=== PATIENT | female | born 1990 | race Caucasian/White ===

== ENCOUNTER 2016-11-16 09:46 | Outpatient (CLI) | payer OTHER ==
[2016-12-01] MEDS ORDERED: PRENATAL VIT1 TAB PO (12:59)
[2016-12-01] MEDS ORDERED: FERROUS GLUCON324 M2 PO (13:00)
[2016-12-01] MEDS ORDERED: COLACE-DPS100 MG PO (13:00)
[2016-12-01] MEDS ORDERED: MOTRIN-DPS800 MG PO (13:00)
[2016-12-01] MEDS ORDERED: NIPPLECREAM TP (13:00)
== END 2016-11-16 12:05 | disposition home or self-care (01) ==
LOC: 2LDRP 09:46 → BC 09:46
DX: O47.1 False labor at or after 37 completed weeks of gestation (principal); Z3A.37 37 weeks gestation of pregnancy

== ENCOUNTER 2016-11-29 06:40 | Inpatient (IN) | payer OTHER ==
[~2016-11-29] VITALS: Ht 175.3 cm; Wt 104.8 kg
--- NOTE | ~2016-11-29 | FD ---
ADMIT: 11/29/2016 RM/LOC: 229 [facility] MR#: [id number] [address] [facility] [address] [place], [place] [address] [address] [place] [id number] Final Diagnosis SEX: F AGE: 26 : 1990 ADMISSION DATE: 11/29/2016 DISCHARGE DATE: 11/30/2016 FINAL DIAGNOSES: 1. A 26-year-old 3, para 3-0-0-3 status post spontaneous vaginal delivery at 39 weeks 3 days. 2. History of HGSIL (high grade squamous intraepithelial lesion). 3. hemorrhage - 1700 mL. Status post Methergine series and Cytotec \T\ Pitocin. PROCEDURE: 1. Spontaneous vaginal delivery. 2. Epidural catheter placement and removal. Dori Larsen MD Resident / Lisa Burgos MD / arlette JOB #: [id number] CC: Lisa Burgos MD, Attending Physician Lisa Burgos MD, Family Physician
[2016-12-01] MEDS ORDERED: PRENATAL VIT1 TAB PO (12:59)
[2016-12-01] MEDS ORDERED: NIPPLECREAM TP (13:00)
[2016-12-01] MEDS ORDERED: MOTRIN-DPS800 MG PO (13:00)
[2016-12-01] MEDS ORDERED: FERROUS GLUCON324 M2 PO (13:00)
[2016-12-01] MEDS ORDERED: COLACE-DPS100 MG PO (13:00)
--- NOTE | 2017-01-03 09:18 | HP ---
ADMIT: 11/29/2016 RM/LOC: 229 [facility] MR#: [id number] 26[address] [facility] [address] [place] [id number] [address] [place] [id number] History and Physical SEX: F AGE: 26 : 1990 DATE OF SERVICE: HISTORY OF PRESENT ILLNESS: The patient is a 26-year-old G3, P 2-0-0-2, with an intrauterine at 39 weeks and 3 days via LMP and confirmed with first trimester ultrasound, who presents to the [facility] for induction of labor. The patient denies regular contractions, leaking of fluid, or vaginal bleeding at the time of presentation. She reports normal movement. has been complicated by history of high grade squamous intraepithelial lesion of the cervix, and uterine size greater than dates on office measurements with normal growth scan. PAST MEDICAL HISTORY: History of high grade squamous intraepithelial lesion. Denies a history of hypertension or asthma. SOCIAL HISTORY: The patient is to [place]. She lives with her and two children. Denies alcohol use, recreational drug use, or tobacco use. 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 FAMILY HISTORY: She has a family history significant for Parkinson disease as well as a CVA in her paternal grandfather. Her mother has hypertension. MEDICATIONS: vitamin. ALLERGIES: PENICILLIN, RASH. REVIEW OF SYSTEMS: The patient denies headache, changes of vision, chest pain, or shortness of breath. Denies nausea, vomiting, diarrhea, constipation. She overall feels well today. PHYSICAL EXAMINATION: VITAL SIGNS: Blood pressure 118/80, pulse 89, temperature 97.1, respiration rate 18, and saturation is greater than 95%. GENERAL: The patient is alert and oriented. She answers questions appropriately. She appears her stated age. No acute distress. HEART: Regular rate and rhythm. LUNGS: Clear to auscultation bilaterally. ABDOMEN: Gravid, nontender to palpation. Estimated weight is 3800 g. EXTREMITIES: Distal pulses are 2+ in bilateral lower extremities. 1+ edema in bilateral lower extremities. Homans sign negative bilaterally. heart tones, baseline, appears to be 130 with moderate variability, positive accelerations, no decelerations. On tocometer, the patient is not soraya at the time of presentation. Sterile vaginal exam per nurse is 5, 50, and -1. ASSESSMENT AND PLAN: This is a 26-year-old G3, P 2-0-0-2, with intrauterine at 39 weeks and 3 days via first trimester ultrasound, who presented ADMIT: 11/29/2016 RM/LOC: 229 [facility] MR#: [id number] [address] [phone] [address] [place] [address] History and Physical SEX: F AGE: 26 : 1990 to the [facility] for scheduled induction of labor. 1. Admit to [facility] for induction of labor. Pitocin per protocol. Verbal and written consents obtained for a vaginal delivery, assistive vaginal delivery, or primary section if needed. The patient consents to a blood transfusion if needed. 2. heart rate tracing is category 1. We will continue to monitor continuously with Pitocin induction. 3. Maternal well-being. She is doing well. She declines all pain intervention at this time. We will continue to reassess throughout the labor process. 4. GBS is negative. No plan for prophylactic antibiotic at this time. 5. Blood type is O positive. The patient will not need prophylactic RhoGAM. CBC was drawn at the time of admission is pending. The patient was discussed and seen by attending physician, Lisa Burgos MD. Dori Larsen MD Resident / Lisa Burgos MD / xochilt JOB #: [id number] CC: Lisa Burgos, Attending Physician Lisa Burgos, Family Physician
--- NOTE | 2017-01-03 09:24 | OR ---
ADMIT: 11/29/2016 RM/LOC: 229 [facility] MR#: [id number] [address] [id number] [address] [place] [id number] Operative/Delivery Room Report SEX: F AGE: 26 : 1990 SURGERY DATE: 11/29/2016 SURGEON: Lisa Burgos MD PREOPERATIVE DIAGNOSES: 1. Intrauterine at 39 weeks 3 days in a 26-year-old 3 para 2-0-0-2. 2. History of high-grade squamous intraepithelial lesion of the cervix. 3. also complicated by uterine size greater than dates. POSTOPERATIVE DIAGNOSES: 1. A 26-year-old 3 para 3-0-0-3 status post spontaneous vaginal delivery at 39 weeks, 3 days estimated gestational age. 2. No vaginal or perineal lacerations. PROCEDURE: Spontaneous vaginal delivery. ANESTHESIA: Epidural. ESTIMATED BLOOD LOSS: 250 mL. URINE OUTPUT: Minimal urine was drained prior to the procedure. CONDITION: Good. COMPLICATIONS: No known complications. COUNTS: Correct x2. PROCEDURE IN DETAIL: This is a 26-year-old G3, P2-0-0-2 with an intrauterine at 39 weeks, 3 days via LMP and confirmed with first trimester ultrasound who was admitted to Labor and Delivery for induction of labor. The patient was started on Pitocin induction and AROM was performed. She ultimately progressed to complete without further augmentation. The patient was complete and began expulsive efforts. The head was brought to the perineum and was delivered. Anterior and posterior shoulders delivered without difficulty. No nuchal cord was present. The was placed on the mother's abdomen. The infant was vigorous and crying ADMIT: 11/29/2016 RM/LOC: 229 [facility] MR#: [id number] 26[address] [facility] [address] [place], [place] [address] [address] [place] [address] Operative/Delivery Room Report SEX: F AGE: 26 : 1990 at the time of . Delayed cord clamping was performed. The cord was clamped and cut and the infant remained with the mother. Cord blood was collected. Cord gas was not collected. The placenta delivered spontaneously with a 3-vessel cord. Placental anatomy was within normal limits. Pitocin was administered per protocol. Delivery time was 1500 hours. Infant was a male and weighed 8 pounds 5-1/2 ounces. scores were 8 and 9. The vagina was inspected for lacerations. No lacerations were noted. All tissues were found to be hemostatic and counts were correct x2. Infant remained with mother and both were stable in mother's room. The epidural catheter was intact and removed without difficulty at the conclusion of the procedure. Attending physician Dr. Lisa Burgos was present for the entire procedure. Dori Larsen MD Resident / Lisa Burgos MD / xochilt JOB #: [id number] CC: Lisa Burgos, Attending Physician Lisa Burgos, Family Physician
== END 2016-11-30 17:23 | disposition home or self-care (01) | DRG 774 ==
LOC: BC 06:40 → 2LDRP 06:40 → BC 06:44 → 2LDRP 07:06 → BC 12-03 12:18
PROVIDERS: ADMIT Obstetrics & Gynecology
PROC: 10907ZC Drainage of Amniotic Fluid, Therapeutic from Products of Conception, Via Natural or Artificial Opening (ICD-10-PCS; principal; 2016-11-29)
PROC: 3E033VJ Introduction of Other Hormone into Peripheral Vein, Percutaneous Approach (ICD-10-PCS; principal; 2016-11-29)
PROC: 10E0XZZ Delivery of Products of Conception, External Approach (ICD-10-PCS; principal; 2016-11-29)
DX: O72.1 Other immediate postpartum hemorrhage (principal); Z88.0 Allergy status to penicillin; Z3A.39 39 weeks gestation of pregnancy; Z37.0 Single live birth